=== PATIENT | male | born 1955 | race Caucasian/White ===

== ENCOUNTER 2020-07-29 14:51 | Emergency (ER) | payer OTHER, MEDICAID ==
[~2020-07-29] VITALS: Ht 175.3 cm; Wt 94.1 kg
[2020-07-29 15:38] LABS: BASOPHILS % (AUTO) 1 % (0-1); EOSINOPHILS % (AUTO) 2 % (1-7); LYMPHOCYTES % (AUTO) 20 % (22-44); MEAN CORPUSCULAR HEMOGLOBIN 30.7 pg (27.5-34.5); MEAN CORPUSCULAR HGB CONC 33.3 g/dL (33.2-36.2); MEAN PLATELET VOLUME 8.2 fL (7.4-10.4); MONOCYTES % (AUTO) 10 % (2-9); NEUTROPHILS % (AUTO) 68 % (42-75); PLATELET COUNT 206 x10^3/uL (130-400); RED BLOOD COUNT 5.33 x10^6/uL (4.38-5.82); RED CELL DISTRIBUTION WIDTH 13.7 % (9.4-14.8)
[2020-07-29 15:41] LABS: MD NO
--- NOTE | 2020-07-29 15:46 | NUR ---
PT STATES HIS HOME SPO2 IS MID 80S, SOB. HX OF COPD. HAS HAD TROUBLE GETTING OXYGEN EQUIPMENT FOR HOME. UNABLE TO GET PULM APPOINT UNTIL AUGUST. PT IN MILD DISTRESS, PLACED ON 3 L NC. SPO2 AT 95% FROM 83% ON RA. DENIES CP, N/V/.
[2020-07-29 15:47] LABS: ALBUMIN 3.8 g/dL (3.4-5.0); ANION GAP 5 mmol/L (5-15); CALCIUM 8.8 mg/dL (8.5-10.1); CHLORIDE 108 mmol/L (98-107)
[2020-07-29 15:53] LABS: ALANINE AMINOTRANSFERASE 21 U/L (12-78); ALKALINE PHOSPHATASE 72 U/L (45-117); BILIRUBIN,TOTAL 0.7 mg/dL (0.2-1.0); TOTAL PROTEIN 7.4 g/dL (6.4-8.2); TROPONIN I < 0.015 ng/mL (0.000-0.045)
--- NOTE | 2020-07-29 16:40 | NUR ---
PT RESTING ON 1 L AT 91%. NOT IN RESP DISTRESS.
--- NOTE | 2020-07-29 17:43 | NUR ---
WORKING ON HOME O2 REFERRAL
--- NOTE | 2020-07-29 18:11 | NUR ---
PT GIVEN MEAL TRAY.
[2020-07-29] MEDS ORDERED: NICOTINE 14MG/24 HR PATCH.TD24 ONE (18:24)
[2020-07-29] MEDS ORDERED: NICOTINE 14MG/24 HR PATCH.TD24 TD ONE (18:30)
--- NOTE | 2020-07-29 18:53 | NUR ---
bedside report from Tip ANDREWS. pt care transferred at this time. pt sitting up in gurney, nad, dressed and ready to dc after o2 arranged, pt denies additional questions or needs but states "i am ready to get going". WCTM.
--- NOTE | 2020-07-29 19:22 | NUR ---
pt became increasingly aggitated and anxious to leave, pt standing in door way, RN talked to pt and explained we cannot force him to wait for home O2 and legally he can AMA, pt signed paperwork and began to leave stating "well heidy lived like this for this long already". RN explained to pt risks and that if he leaves he has to get rechecked in and the process starts again if he comes back tomorrow. pt informed that home o2 will take 1-3 hours for us to finish setting up. pt then decided to stay, ambulated back to room with a smooth and steady gait, placed on o2 and spo2/bp monitoring at this time. given warm blankets and heater for comfort, nad, wctm. waiting for o2
[2020-07-29 20:08] VITALS: BP 112/61
--- NOTE | 2020-07-29 20:09 | NUR ---
Patient given discharge instructions and they have confirmed that they understand the instructions. Patient ambulatory with steady gait. HAS O2 WITH PT UPON DC, PT DENIES ADDITIONAL NEEDS OR QUESTIONS AT THIS TIME. PT STATES I DONT WANT TO READ ALL THESE PAPERS HERE, ILL READ THEM AT HOME. RN REVIEWED PERTINENT TEACHING ON O2 AND MEDS AND REASONS TO RETURN. PT LEFT NO BELONGINGS IN ROOM AT TIME OF DC.
== END 2020-07-29 20:10 | disposition home or self-care (01) ==
LOC: ED 16:58
DX: J44.1 Chronic obstructive pulmonary disease with (acute) exacerbation (principal); R06.00 Dyspnea, unspecified; Z20.828 Contact with and (suspected) exposure to other viral communicable diseases; R94.31 Abnormal electrocardiogram [ECG] [EKG]; I11.9 Hypertensive heart disease without heart failure; K21.9 Gastro-esophageal reflux disease without esophagitis
CPT/HCPCS: 36415; 71045; 80053; 83880; 84484; 85025; 87635; 93005; 99283

== ENCOUNTER → 2020-11-03 | Outpatient (CLI) | payer MEDICARE, MEDICAID ==
[~2020-11-03] MED LIST: REGADENOSON 0.4 MG/5 ML SYRINGE ONE
== END | disposition home or self-care (01) ==
LOC: CVU 10:32
PROVIDERS: ATTEND Registered Nurse
DX: J43.2 Centrilobular emphysema (principal); R91.8 Other nonspecific abnormal finding of lung field; I10 Essential (primary) hypertension; I25.10 Atherosclerotic heart disease of native coronary artery without angina pectoris
CPT/HCPCS: 71250; 78452; 93017; 93306; 93356; A9502; J2785

== ENCOUNTER 2020-12-24 09:00 | Outpatient (CLI) | payer MEDICARE, MEDICAID | END 2020-12-24 23:59 | disposition home or self-care (01) | LOC: PETCFH 09:00 | PROVIDERS: ATTEND Internal Medicine | DX: J43.9 Emphysema, unspecified (principal); R91.8 Other nonspecific abnormal finding of lung field; I25.10 Atherosclerotic heart disease of native coronary artery without angina pectoris | CPT/HCPCS: 78815; A9552 ==

== ENCOUNTER → 2021-04-21 | Outpatient (CLI) | payer MEDICARE, MEDICAID | END | disposition home or self-care (01) | LOC: CFH 10:42 | PROVIDERS: ATTEND Internal Medicine | DX: J43.2 Centrilobular emphysema (principal); R91.8 Other nonspecific abnormal finding of lung field | CPT/HCPCS: 71250 ==